=== PATIENT | male | born 1975 | race Caucasian/White ===

== ENCOUNTER 2017-03-01 15:57 | Emergency (ER) | payer MEDICAID ==
[~2017-03-01] VITALS: Ht 193 cm; Wt 77.8 kg
[2017-03-01 16:56] LABS: PATH.CAST-FLAG NOT PRESENT; SPERM-FLAG NOT PRESENT; SRC-FLAG NOT PRESENT; XTAL-FLAG NOT PRESENT; YLC-FLAG NOT PRESENT
[2017-03-01 17:36] VITALS: BP 120/80
== END 2017-03-01 17:38 | disposition home or self-care (01) ==
LOC: ED 16:26
DX: N30.00 Acute cystitis without hematuria (principal); F17.210 Nicotine dependence, cigarettes, uncomplicated
CPT/HCPCS: 81001; 87491; 87591; 99284